=== PATIENT | male | born 1975 | race Caucasian/White ===

== ENCOUNTER 2021-12-20 17:51 | Emergency (ER) | payer BC ==
[2021-12-20] MEDS ORDERED: Lactated Ringers 1,000 ML IV SCH (18:15)
[2021-12-20] MEDS ORDERED: Sodium Chloride 0.9% 10 ML Syringe FLUSH PRN (18:15)
[2021-12-20] MEDS ORDERED: fentaNYL 100 MCG/2 ML SDV IVPUSH ONE (18:17)
[2021-12-20] MEDS ORDERED: Ondansetron 4 MG/2 ML SDV IVPUSH ONE (18:17)
[2021-12-20] MEDS ORDERED: Sodium Chloride 0.9% 10 ML Syringe FLUSH ONE (18:23)
[2021-12-20] MEDS ORDERED: Sodium Chloride 0.9% 50 ML IV SCH (18:30)
[2021-12-20] MEDS ORDERED: Iopamidol 612 MG/ML 100 ML Bottle IV SCH (18:30)
== END 2021-12-20 21:17 | disposition home or self-care (01) ==
LOC: JP.ED 17:51
DX: K63.89 Other specified diseases of intestine (principal); I10 Essential (primary) hypertension; Z79.899 Other long term (current) drug therapy
CPT/HCPCS: 36415; 74177; 80053; 81001; 83605; 83690; 85025; 96374; 96375; 99284; J2405; J3010; J7120; Q9967

== ENCOUNTER 2023-12-22 20:10 | Emergency (ER) | payer BC ==
[2023-12-22 20:27] LABS: BASOPHILS ABSOLUTE AUTO 0.05 K/uL (0.00-0.10); BASOPHILS PERCENT AUTO 0.5 % (0.1-1.3); EOSINOPHILS ABSOLUTE AUTO 0.14 K/uL (0.00-0.40); EOSINOPHILS PERCENT AUTO 1.3 % (0.0-5.4); HEMATOCRIT 43.9 % (38.4-49.7); HEMOGLOBIN 14.7 g/dL (12.9-16.9); IMMATURE GRAN ABSOLUTE AUTO 0.07 K/uL (0.00-0.23); IMMATURE GRAN PERCENT AUTO 0.6 % (0.0-0.7); LYMPHOCYTES ABSOLUTE AUTO 3.12 K/uL (0.8-3.3); LYMPHOCYTES PERCENT AUTO 28.4 % (11.4-47.7); MEAN CORPUSCULAR HEMOGLOBIN 26.4 pg (31.6-35.5); MEAN CORPUSCULAR HGB CONC 33.5 g/dL (31.6-35.5); MONOCYTES PERCENT AUTO 6.4 % (3.3-12.6); NEUTROPHILS PERCENT AUTO 62.8 % (40.0-78.1); PLATELET COUNT,PLT 294 K/uL (130-375); RED BLOOD CELL COUNT 5.56 M/uL (4.14-5.76)
[2023-12-22 20:51] LABS: ANION GAP 13.9 mmol/L (5.0-14.0); BLOOD UREA NITROGEN,BUN 14 mg/dL (7-18); C-REACTIVE PROTEIN < 0.50 mg/dL (<0.50); CALCIUM 8.4 mg/dL (8.5-10.1); CARBON DIOXIDE,CO2 27 mmol/L (21-32); CHLORIDE,CL 100 mmol/L (100-108); CREATININE 0.9 mg/dL (0.8-1.3); ESTIMATED GFR 104 mL/min (>60); GLUCOSE RANDOM 146 mg/dL (74-106); POTASSIUM,K 3.9 mmol/L (3.6-5.2); SODIUM,NA 137 mmol/L (140-148); TROPONIN I HIGH SENSITIVITY < 4.0 pg/mL (<=60.3)
[2023-12-22 21:06] LABS: CORONAVIRUS COVID-19 NAA NEGATIVE (NEGATIVE); INFLUENZA A NAA NEGATIVE (NEGATIVE); INFLUENZA B NAA NEGATIVE (NEGATIVE); RESPIRATORY SYNCYTIAL VIR NAA NEGATIVE (NEGATIVE)
[2023-12-22] MEDS: Alum Hydrox/Mag Hydrox/Simeth 15 ML, Lidocaine 2% 15 ML PO ONE (21:47)
[2023-12-22] MEDS: Sodium Chloride 0.9% 1,000 ML IV SCH (21:48)
[2023-12-22] MEDS: Sodium Chloride 0.9% 10 ML Syringe FLUSH ONE (22:32)
[2023-12-22] MEDS: Sodium Chloride 0.9% 100 ML IV ONE (22:32)
[2023-12-22] MEDS: Iopamidol 755 Mg/ML 100 ML Bottle IV ONE (22:32)
[2023-12-23] MEDS: Sodium Chloride 0.9% 1,000 ML IV SCH (00:09)
[2023-12-23] MEDS: Ketorolac 15 MG/ML SDV IVPUSH ONE (00:15)
== END 2023-12-23 01:49 | disposition home or self-care (01) ==
LOC: JP.ED 20:10
DX: R07.9 Chest pain, unspecified (principal); I10 Essential (primary) hypertension; Z79.899 Other long term (current) drug therapy
CPT/HCPCS: 0241U; 36415; 71045; 71045-26; 71275; 80048; 83605; 83735; 84443; 84484; 85025; 85379; 86140; 86308; 93005; 96361; 96374; 99284; 99285-25; A9270-GY; J1885; J3490; J7030; Q9967